=== PATIENT | male | born 1955 | race Caucasian/White ===

== ENCOUNTER 2018-07-14 13:07 | Emergency (ER) | payer BC ==
[~2018-07-14] VITALS: Ht 188 cm; Wt 113.6 kg
[2018-07-14 13:10] VITALS: BP 155/97; TEMP 97.7
[2018-07-14] MEDS ORDERED: GLUCOTROL10 MG PO (13:21)
[2018-07-14] MEDS ORDERED: ZEBETA10 MG PO (13:22)
[2018-07-14] MEDS ORDERED: GLUCOTROL 5M5 MG/TAB PO (13:22)
[2018-07-14] MEDS ORDERED: LOPID 600M600 MG/TAB PO (13:22)
[2018-07-14] MEDS ORDERED: FLOMAX 0.40.4 MG/CAP PO (13:23)
[2018-07-14] MEDS ORDERED: PRINIVIL40 MG PO (13:23)
[2018-07-14] MEDS ORDERED: NORVASC 10MG10 MG PO (13:24)
[2018-07-14] MEDS ORDERED: ASPIRIN E.C. 8181 MG PO (13:24)
[2018-07-14] MEDS ORDERED: PRILOSEC 20MG20 MG PO (13:25)
[2018-07-14] MEDS ORDERED: NORCO 325 MG-51 TAB PO (14:26)
[2018-07-14] MEDS ORDERED: CIPRO 500MG TA500 MG PO (14:33)
[2018-07-14 14:34] VITALS: PULSE 61
== END 2018-07-14 14:35 | disposition home or self-care (01) ==
LOC: COL.ER 13:07
DX: N41.9 Inflammatory disease of prostate, unspecified (principal); I10 Essential (primary) hypertension; E11.9 Type 2 diabetes mellitus without complications; Z79.82 Long term (current) use of aspirin; Z79.84 Long term (current) use of oral hypoglycemic drugs

== ENCOUNTER → 2019-08-18 | Outpatient (CLI) | payer BC ==
[~2019-08-18] MED LIST: ASPIRIN E.C. 8181 MG PO; CIPRO 500MG TA500 MG PO; FLOMAX 0.40.4 MG/CAP PO; GLUCOTROL 5M5 MG/TAB PO; GLUCOTROL10 MG PO; LOPID 600M600 MG/TAB PO; NORCO 325 MG-51 TAB PO; NORVASC 10MG10 MG PO; PRILOSEC 20MG20 MG PO; PRINIVIL40 MG PO; ZEBETA10 MG PO
== END ==
LOC: COL.RAD 09:20
DX: C61 Malignant neoplasm of prostate (principal)
CPT/HCPCS: A9503

== ENCOUNTER 2022-06-17 19:02 | Emergency (ER) | payer MEDICARE, BC ==
[~2022-06-17] VITALS: Ht 188 cm; Wt 113.6 kg
[2022-06-17 19:07] VITALS: TEMP 97.8
[2022-06-17 19:35] LABS: BASO # 0.1 K/mm3 (0.0-0.2); BASO % 0.6 % (0.0-2.0); EOS # 0.7 K/mm3 (0.0-0.7); EOS % 5.8 % (0.0-4.0); GRAN # 8.7 K/mm3 (1.4-6.5); GRAN % 70.5 % (42.2-75.2); HEMATOCRIT 47.3 % (42.0-52.0); HEMOGLOBIN 15.9 g/dl (13.5-18.0); LYMPH # 1.9 K/mm3 (1.2-3.4); LYMPH % 15.7 % (20.0-51.0); MEAN CELL VOLUME 87 fl (80.0-100.0); MEAN CORPUSCULAR HEMOGLOBIN 29 pg (27-31); MEAN CORPUSCULAR HGB CONC 34 g/dl (33.0-37.0); MONO # 0.8 K/mm3 (0.1-0.6); MONO % 6.7 % (1.7-9.3); PLATELET COUNT 297 K/mm3 (130-400); RED BLOOD COUNT 5.47 M/mm3 (4.20-5.60); REDCELL DISTRIBUTION WIDTH-CV 13.9 % (11.5-14.5)
[2022-06-17 19:53] LABS: ALBUMIN 4.4 gm/dL (3.4-4.8); BILIRUBIN,TOTAL 0.5 mg/dL (0.2-1.2); C-REACTIVE PROTEIN 1.29 mg/dL (0.00-0.50); CALCIUM 10.2 mg/dL (8.4-10.2); CREATININE, serum 0.93 mg/dL (0.72-1.25); TOTAL PROTEIN 7.8 gm/dL (6.2-8.1)
[2022-06-17 19:58] LABS: TROPONIN-I 0.012 ng/mL (0.00-0.033)
[2022-06-17 20:54] LABS: COLLECTION METHOD CLEAN CATCH
[2022-06-17 21:05] VITALS: BP 144/77; PULSE 70
[2022-06-17 21:07] LABS: MUCOUS Present (NOT PRESENT); SQUAMOUS EPITHELIAL None Seen /hpf (0-10); URINE BACTERIA None Seen /hpf (NONE SEEN); URINE RBC 0-2 /hpf (0-2)
[2022-06-17 21:09] LABS: URINE APPEARANCE Clear (CLEAR/HAZY); URINE BLOOD Negative (NEGATIVE); URINE COLOR Yellow (YELLOW); URINE GLUCOSE Negative (NEGATIVE); URINE KETONE Negative (NEGATIVE); URINE NITRATE Negative (NEGATIVE); URINE PROTEIN(semi-quant) Negative (NEGATIVE); URINE UROBILINOGEN 0.2 E.U/dL (0.2-1.0)
== END 2022-06-17 21:09 | disposition home or self-care (01) ==
LOC: COL.ER 19:02
PROVIDERS: Emergency Medicine
DX: S90.112A Contusion of left great toe without damage to nail, initial encounter (principal); S90.122A Contusion of left lesser toe(s) without damage to nail, initial encounter; D72.829 Elevated white blood cell count, unspecified; R79.82 Elevated C-reactive protein (CRP); X19.XXXA Contact with other heat and hot substances, initial encounter